=== PATIENT | male | born 1965 | race Caucasian/White ===

== ENCOUNTER 2016-08-03 08:58 | Emergency (ER) | payer OTHER ==
[~2016-08-03] VITALS: Ht 182.9 cm; Wt 70.5 kg
[~2016-08-03 08:58] MED LIST: IBUP200C11 PO
[2016-08-03 09:03] VITALS: BP 155/100; PULSE 101; RESP 14; O2SAT 100
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
--- NOTE | 2016-08-03 10:56 | DRSVH ---
PROCEDURE: CT BRAIN WITHOUT CONTRAST ([id number]) INDICATIONS: trauma, + loss of consciousness TECHNIQUE: Noncontrast 4.5 mm thick angled axial sections acquired from the foramen magnum to the vertex, with c oronal reformats. COMPARISON: None. FINDINGS: Image quality: Diagnostic. Brain: There is no acute intra-axial or extra-axial hemorrhage. No extra-axial fluid collection is i dentified. There is no midline shift or mass effect. The orbits are grossly unremarkable. A small a rachnoid cyst is evident within the posterior fossa to the left of midline. No large areas of diffusely decreased attenuation are evident within the brain to suggest diffuse cer ebral edema. No focal parenchymal abnormality is identified. The ventricles and cortical sulci are age-appropriate. Bones: Calvarium and visualized facial bones are grossly intact. No mucosal thickening is noted inv olving the maxillary sinuses and ethmoid air cells. Old injury to the lamina papyracea on the right and left appears to be present. IMPRESSION: 1. No acute intracranial hemorrhage. 2. Mild sinus disease. Dictated by: Prasanth Russ M.D. on 08/03/2016 at 9:51 Approved by: Prasanth Russ M.D. on 08/03/2016 at 9:54
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
[2016-08-03 11:43] VITALS: BP 139/94; RESP 17; O2SAT 98
== END 2016-08-03 11:44 | disposition home or self-care (01) ==
LOC: SED 08:58
DX: S06.0X9A Concussion with loss of consciousness of unspecified duration, initial encounter (principal); S01.81XA Laceration without foreign body of other part of head, initial encounter; S16.1XXA Strain of muscle, fascia and tendon at neck level, initial encounter; S60.511A Abrasion of right hand, initial encounter; W20.8XXA Other cause of strike by thrown, projected or falling object, initial encounter; Y93.89 Activity, other specified; Y92.69 Other specified industrial and construction area as the place of occurrence of the external cause; Y99.0 Civilian activity done for income or pay; F17.200 Nicotine dependence, unspecified, uncomplicated